=== PATIENT | female | born 1955 | race Caucasian/White ===

== ENCOUNTER 2022-07-15 00:21 | Inpatient (IN) | payer MEDICARE, MEDICAID, SELFPAY ==
[2022-07-15 00:35] VITALS: BP 176/77; PULSE 86; RESP 16; TEMP 36.1; O2SAT 97
[2022-07-15] MEDS: hydrOXYzine HCL 25 MG TABLET PO (01:55)
[2022-07-15] MEDS: LORazepam 0.5 MG TABLET PO ×3 (01:55→23:19)
[2022-07-15] MEDS: Prazosin HCL 5 MG CAPSULE PO (02:04)
--- NOTE | 2022-07-15 02:08 | PC.NURSE ---
pt is a 67 year old female transferred from [facility] dx bipolar disorder/depression/ptsd/adhd. pt states that she was recently undergoing 36 tx of Tms. pt states she stopped the tx after 32 sessions due to night terrors. pt states that she had not experienced any night terrors for 2 years. Unfortunately after starting TMS, pt had a reoccurrence of night terrors. pt states that she called 911 d/t night terrors and subsequent panic attack. 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 she lives alone in an apartment with her cat valente. pt states that over the coarse of her life she has been hospitalized four times for mental health reasons. she states that she has never been suicidal or homicidal. pt is mildly anxious. she is garbed in paper hospital garmets. she states she is hungry. her sensorium is grossly intact. her conversation is deliberate and well articulated. she signed c-v. however, she states in the morning she wants to sign a 3 day. pt is ambulatory with a steady gait. she has no deficits with her ADLS. Skin surfaces intact. resp effort is regular unlabored. htn 176/77. pt will be receiving prazosin 5 mg. pt states regular diet/no difficulty chewing or swallowing/abdomen obese/soft. bm yesterday. no dysuria. pt is a 1 ppd smoker and is requesting NRT.
[2022-07-15 02:35] VITALS: BMI 42.3
[2022-07-15 02:59] VITALS: BP 176/77; PULSE 86; RESP 16; TEMP 36.1; O2SAT 97
[2022-07-15] MEDS: Levothyroxine Sodium 125 MCG TABLET PO (06:38)
[2022-07-15] MEDS: Prazosin HCL 1 MG CAPSULE 2 MG PO (09:03)
[2022-07-15] MEDS: hydrOXYzine HCL 25 MG TABLET 50 MG PO ×3 (09:04→20:48)
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
[2022-07-15] MEDS: Nicotine Polacrilex 2 MG GUM BUCCAL (17:19)
[2022-07-15 18:00] VITALS: BP 120/58; PULSE 74; RESP 16; TEMP 36.3; O2SAT 93
[2022-07-15] MEDS: diazePAM 2 MG TABLET PO (20:43)
[2022-07-15] MEDS: hydrOXYzine HCL 50 MG TABLET 100 MG PO (20:45)
[2022-07-15] MEDS: Prazosin HCL 5 MG CAPSULE 10 MG PO (20:45)
[2022-07-15] MEDS: NIFEdipine ER 30 MG TAB.ER.24 PO (20:45)
[2022-07-15] MEDS: Ziprasidone 80 MG CAPSULE PO (20:46)
[2022-07-16 06:00] VITALS: BP 134/78; PULSE 97; RESP 17; TEMP 36.5; O2SAT 95
[2022-07-16] MEDS: Levothyroxine Sodium 125 MCG TABLET PO (06:31)
[2022-07-16 08:14] LABS: MANUAL DIFF FLAG NO
[2022-07-16] MEDS: Ziprasidone 80 MG CAPSULE PO ×2 (08:26→22:11)
[2022-07-16] MEDS: hydrOXYzine HCL 25 MG TABLET 50 MG PO ×3 (08:26→22:06)
[2022-07-16] MEDS: Venlafaxine HCl ER 150 MG CAP.ER.24H PO (08:26)
[2022-07-16] MEDS: NIFEdipine ER 30 MG TAB.ER.24 PO ×2 (08:26→22:11)
[2022-07-16 09:01] LABS: Basophils Percent Auto 0.5 % (0-2); Eosinophils Absolute Auto 0.2 X10*3/uL (0.0-0.4); Eosinophils Percent Auto 3.1 % (0-4); Hematocrit 47.8 % (37.0-47.0); Hemoglobin 16.3 g/dl (12.0-16.0); Imm Gran Abs Auto 0.02 X10*3/uL (0.00-0.03); Imm Gran Pct Auto 0.3 % (0.0-0.4); Lymphocytes Absolute Auto 2.3 X10*3/uL (1.2-4.9); Lymphocytes Percent Auto 35.2 % (20-40); Mean Corpuscular HGB Conc 34.1 g/dl (31.0-35.0); Mean Corpuscular Hemoglobin 30.6 pg (27.0-33.0); Mean Corpuscular Volume 89.8 fL (80.0-98.0); Mean Platelet Volume 9.8 fL (9.4-12.3); Monocytes Absolute Auto 0.4 X10*3/uL (0.1-1.2); Monocytes Percent Auto 6.2 % (2-11); Neutrophils Absolute Auto 3.5 x10*3/uL (2.0-8.3); Neutrophils Percent Auto 54.7 % (45-73); Platelet Count 242 X10*3/uL (160-400); Red Blood Count 5.32 X10*6/uL (4.20-5.50); Red Cell Distribution Width 12.9 % (11.0-16.0); White Blood Count 6.4 X10*3/uL (4.8-10.8)
[2022-07-16 09:15] LABS: Alanine Aminotransferase 32 U/L (0-31); Albumin Level 4.5 g/dL (3.5-5.0); Alkaline Phosphatase 80 U/L (39-117); Anion Gap 17 (12-20); Aspartate Amino Transferase 23 U/L (5-31); Bilirubin Direct 0.2 mg/dL (0.0-0.5); Bilirubin Total 0.5 mg/dL (0.0-1.0); Blood Urea Nitrogen 11 mg/dL (9-16); Calcium 9.9 mg/dL (8.4-10.2); Carbon Dioxide 22 mmol/L (22-29); Chloride 105 mmol/L (96-108); Cholesterol 223 mg/dL; Estimated Glomerular Filt Rate > 60; Glucose Fasting 128 mg/dL (60-99); HDL Cholesterol 59 mg/dL; LDL Cholesterol Calculated 141 mg/dl; Potassium 4.3 mmol/L (3.3-5.1); Sodium 140 mmol/L (135-145); Total Protein 7.2 g/dL (6.5-8.0); Triglycerides 117 mg/dL
[2022-07-16 09:36] LABS: Thyroid Stimulating Hormone 7.38 uIU/mL (0.32-4.0)
[2022-07-16 09:47] LABS: Vitamin B12 536 pg/mL (200-900)
[2022-07-16 09:53] LABS: Estimated Average Glucose 111 mg/dL; Hemoglobin A1c % 5.5 %
[2022-07-16] MEDS: LORazepam 0.5 MG TABLET PO (10:05)
--- NOTE | 2022-07-16 11:17 | HO.PSYCHPN ---
Subjective Subjective Date of Service: 07/16/22 Reason For Visit: Bipolar, anxiety Subjective Notes: Conditional Voluntary and 3 Day Interim History: the nursing staff reported the patient was compliant with treatment. She reported that she is allergic but amoxapine and she usually uses concert. We discussed options and she agreed to use in the meantime a low dose of Ritalin. She stated on interview, that her night terrors were resolved with Valium 2 mg. She complained of waking up very early this morning. Mental Status Exam Mental Status Exam Patient Appearance: Well Grooomed Patient Orientation: Person and Situation Level of Consciousness: Awake Patient Behavior: Cooperative Mood Description: Calm Affect Description: Constricted Patient Cognition Impaired: No Ability to Follow Directions: Good Speech Pattern: Clear Hallucinations: None Delusions: Not Present Thought Process: Linear Thought Content: positive for Intact Judgement: Fair Diagnostics Vital Signs (24Hr): Vital Signs - 24 hr 07/15/22 18:00 07/16/22 06:00 Temperature 97.4 F 97.7 F Pulse Rate 74 97 Respiratory Rate 16 17 Blood Pressure 120/58 L 134/78 Pulse Oximetry 93 95 Oxygen Delivery Method Room Air Room Air BMI result Body Mass Index 42.3 Labs Results: 07/16/22 07:56 07/16/22 07:56 Labs: Laboratory Results - last 48 hr 07/16/22 07/16/22 07/16/22 07:56 07:56 07:56 WBC 6.4 RBC 5.32 Hgb 16.3 H Hct 47.8 H MCV 89.8 MCH 30.6 MCHC 34.1 RDW 12.9 Plt Count 242 MPV 9.8 Immature Gran % (Auto) 0.3 Neut % (Auto) 54.7 Lymph % (Auto) 35.2 [place] % (Auto) 6.2 Eos % (Auto) 3.1 Baso % (Auto) 0.5 Lymph # (Auto) 2.3 [place] # (Auto) 0.4 Eos # (Auto) 0.2 Baso # (Auto) 0.0 Abs Immat Gran (auto) 0.02 Absolute Neuts (auto) 3.5 Absolute Nucleated RBC 0.000 Nucleated RBC % (auto) 0.0 Sodium 140 Potassium 4.3 Chloride 105 Carbon Dioxide 22 Anion Gap 17 BUN 11 Creatinine 0.92 Estim Creat Clear Calc 59.0 Estimated GFR > 60 Fasting Glucose 128 H Estimat Average Glucose 111 Hemoglobin A1c % 5.5 Calcium 9.9 Total Bilirubin 0.5 Direct Bilirubin 0.2 AST 23 ALT 32 H Alkaline Phosphatase 80 Total Protein 7.2 Albumin 4.5 Triglycerides 117 Cholesterol 223 LDL Cholesterol, Calc 141 HDL Cholesterol 59 Vitamin B12 Folate TSH 7.38 H 07/16/22 07:56 WBC RBC Hgb Hct MCV MCH MCHC RDW Plt Count MPV Immature Gran % (Auto) Neut % (Auto) Lymph % (Auto) [place] % (Auto) Eos % (Auto) Baso % (Auto) Lymph # (Auto) [place] # (Auto) Eos # (Auto) Baso # (Auto) Abs Immat Gran (auto) Absolute Neuts (auto) Absolute Nucleated RBC Nucleated RBC % (auto) Sodium Potassium Chloride Carbon Dioxide Anion Gap BUN Creatinine Estim Creat Clear Calc Estimated GFR Fasting Glucose Estimat Average Glucose Hemoglobin A1c % Calcium Total Bilirubin Direct Bilirubin AST ALT Alkaline Phosphatase Total Protein Albumin Triglycerides Cholesterol LDL Cholesterol, Calc HDL Cholesterol Vitamin B12 536 Folate 13.0 TSH Medications Medications Current Medications Acetaminophen (Acetaminophen 325 Mg Tablet) 650 mg PO Q6H PRN PRN Reason: Headache/Pain Mild Scale (1-3) Al Hydroxide/Mg Hydroxide (Magnesium Hydrox/Alum Hydrox 30 Ml Oral.Susp) 30 ml PO Q6H PRN PRN Reason: Heartburn/Nausea Clonidine HCl (Clonidine Hcl 0.2 Mg Tablet) 0.2 mg PO BID PRN PRN Reason: Anxiety Diazepam (Diazepam 2 Mg Tablet) 2 mg PO BEDTIME [facility] Last Admin: 07/15/22 20:43 Dose: 2 mg Gabapentin (Gabapentin 300 Mg Capsule) 300 mg PO TID [facility] Last Admin: 07/16/22 08:27 Dose: Not Given Hydroxyzine HCl (Hydroxyzine Hcl 25 Mg Tablet) 25 mg PO Q6H PRN PRN Reason: Anxiety Last Admin: 07/15/22 01:55 Dose: 25 mg Hydroxyzine HCl (Hydroxyzine Hcl 25 Mg Tablet) 50 mg PO TID [facility] Last Admin: 07/16/22 08:26 Dose: 50 mg Hydroxyzine HCl (Hydroxyzine Hcl 50 Mg Tablet) 100 mg PO BEDTIME [facility] Last Admin: 07/15/22 20:45 Dose: 100 mg Levothyroxine Sodium (Levothyroxine Sodium 125 Mcg Tablet) 125 mcg PO DAILY@0600 [facility] Last Admin: 07/16/22 06:31 Dose: 125 mcg Lorazepam (Lorazepam 0.5 Mg Tablet) 0.5 mg PO Q8H PRN PRN Reason: Anxiety Last Admin: 07/16/22 10:05 Dose: 0.5 mg Magnesium Hydroxide (Milk Of Magnesia 30 Ml Oral.Susp) 30 ml PO DAILY PRN PRN Reason: Constipation Nicotine (Nicotine 21 Mg Patch.Td24) 21 mg TRANSDERMA DAILY [facility] Nicotine Polacrilex (Nicotine Polacrilex 2 Mg Gum) 2 mg BUCCAL Q2H PRN PRN Reason: Nicotine Cravings Last Admin: 07/15/22 17:19 Dose: 2 mg Nifedipine (Nifedipine Er 30 Mg Tab.Er.24) 30 mg PO BID [facility] Last Admin: 07/16/22 08:26 Dose: 30 mg Non-Formulary Medication (Atomoxetine) 18 mg PO DAILY [facility] Prazosin HCl (Prazosin Hcl 5 Mg Capsule) 10 mg PO BEDTIME [facility] Last Admin: 07/15/22 20:45 Dose: 10 mg Trazodone HCl (Trazodone Hcl 50 Mg Tablet) 50 mg PO BEDTIME PRN PRN Reason: Insomnia Venlafaxine HCl (Venlafaxine Hcl Er 150 Mg Cap.Er.24h) 150 mg PO DAILY [facility] Last Admin: 07/16/22 08:26 Dose: 150 mg Ziprasidone (Ziprasidone 80 Mg Capsule) 80 mg PO BID [facility] Last Admin: 07/16/22 08:26 Dose: 80 mg Allergies Allergies Allergy/AdvReac Type Severity Reaction Status Date / Time No Known Allergies Allergy Verified 07/15/22 01:18 Assessment & Plan Assessment & Plan (1) Bipolar disorder: Status: Acute Code(s): F31.9 - Bipolar disorder, unspecified (2) Sleep disorder: Status: Acute Code(s): G47.9 - Sleep disorder, unspecified Plan the patient is an elderly female with a long history of bipolar disorder, highly functional at baseline, referred to this facility for exacerbation of PTSD symptoms and night terrors in the context of treatment for depression. At this moment, the patient denies safety concerns but she reports that she is still very anxious, unable to function. Plan 1. Gather collateral information. 2. Continue with Geodon and other mood stabilizers. 3. Continue medical workout . 4. Continue Valium 2 mg p.o. q.h.s. to target night terrors. 5. Start Ritalin 5 mg p.o. b.i.d. I spent __20____ minutes with the patient and/or on the patient floor today, greater than?50% of which was spent counseling/coordinating care. Reason for contiued inpatient stay Substantial Risk for: inability to function, rapid decompensation and med/psych decompensation
--- NOTE | 2022-07-16 14:14 | P.CONHOSP_ITS ---
History of Present Illness Data of Consult Service Date: 07/16/22 Requesting physician: Yaw Talbot Primary Care Provider: Unknown Physician HPI Reason for consult: medical H&P 67 year old female with history of hypertension, hypothyroidism, parotitis, ADHD, bipolar disorder admitted to geriatric psychiatry for hallucinations, SI, and night terrors with consult placed for medical H&P. She was transferred from [facility]. Denies etoh or illicit drug use. Does smoke 1ppd cigarettes. She has no complaints at this time but is requenting a nicotine patch. Review of Systems Review of Systems: General: No fevers, malaise, unintentional weight loss HEENT: No blurred vision or diplopia Neck: No swelling or pain Cardiovascular: No chest pain, palpitations, or leg edema Respiratory: No shortness of breath, wheezing, cough GI: No abdominal pain, nausea, vomiting, diarrhea, constipation, melena, hematochezia Gu: No dysuria, hematuria, increased urinary frequency Neuro: No headaches, weakness, paresthesias Skin: No rashes or lesions PMFSH Medical History ADHD Bipolar disorder HLD (hyperlipidemia) HTN (hypertension) Hypothyroidism Night terror Parotitis Family History Mother No problems noted. Father No problems noted. Social History Household Members: None Housing: Apartment Do you presently have visiting nurse or other home services: No Patient Tobacco Use Status: Current everyday Tobacco user Tobacco use type: Cigarette Smoked in Last 30 Days: Yes Patient Interested in Nicotine Replacement: Yes Patient Given Instructions on How to Stop Smoking: No (consult initiated) Date Education Initiated: 07/15/22 Second Hand Smoke Exposure: No Use of substances other than those prescribed or required for medical reasons: No Currently Displaying Signs/Symptoms of Drug Intoxication Withdrawal: No Any prior treatment program specific to substance use: No Have you been hit, kicked, punched, or otherwise hurt by someone within the past year? If so, by whom?: No Do you feel safe in your current relationship?: No Current Relationship Is there a partner from a previous relationship who is making you feel unsafe now?: No Are you made to feel afraid or neglected: No Advance Directives: No Do you have thoughts of harming others: None Do you have a plan to hurt others: No Plan Recently lost weight without trying: No Eating poorly because of decreased appetite: Yes Patient : No : No Poor oral hygiene: No service: No Sexual orientation: Straight/Heterosexual Meds Allergies Allergy/AdvReac Type Severity Reaction Status Date / Time No Known Allergies Allergy Verified 07/15/22 01:18 Active Medications: Current Medications Acetaminophen (Acetaminophen 325 Mg Tablet) 650 mg PO Q6H PRN PRN Reason: Headache/Pain Mild Scale (1-3) Al Hydroxide/Mg Hydroxide (Magnesium Hydrox/Alum Hydrox 30 Ml Oral.Susp) 30 ml PO Q6H PRN PRN Reason: Heartburn/Nausea Clonidine HCl (Clonidine Hcl 0.2 Mg Tablet) 0.2 mg PO BID PRN PRN Reason: Anxiety Diazepam (Diazepam 2 Mg Tablet) 2 mg PO BEDTIME [facility] Last Admin: 07/15/22 20:43 Dose: 2 mg Gabapentin (Gabapentin 300 Mg Capsule) 300 mg PO TID [facility] Last Admin: 07/16/22 08:27 Dose: Not Given Hydroxyzine HCl (Hydroxyzine Hcl 25 Mg Tablet) 25 mg PO Q6H PRN PRN Reason: Anxiety Last Admin: 07/15/22 01:55 Dose: 25 mg Hydroxyzine HCl (Hydroxyzine Hcl 25 Mg Tablet) 50 mg PO TID [facility] Last Admin: 07/16/22 08:26 Dose: 50 mg Hydroxyzine HCl (Hydroxyzine Hcl 50 Mg Tablet) 100 mg PO BEDTIME [facility] Last Admin: 07/15/22 20:45 Dose: 100 mg Levothyroxine Sodium (Levothyroxine Sodium 125 Mcg Tablet) 125 mcg PO DAILY@0600 [facility] Last Admin: 07/16/22 06:31 Dose: 125 mcg Lorazepam (Lorazepam 0.5 Mg Tablet) 0.5 mg PO Q8H PRN PRN Reason: Anxiety Last Admin: 07/16/22 10:05 Dose: 0.5 mg Magnesium Hydroxide (Milk Of Magnesia 30 Ml Oral.Susp) 30 ml PO DAILY PRN PRN Reason: Constipation Methylphenidate HCl (Methylphenidate Hcl 5 Mg Tablet) 5 mg PO BID@0630,1630 [facility] Nicotine (Nicotine 21 Mg Patch.Td24) 21 mg TRANSDERMA DAILY [facility] Nicotine Polacrilex (Nicotine Polacrilex 2 Mg Gum) 2 mg BUCCAL Q2H PRN PRN Reason: Nicotine Cravings Last Admin: 07/15/22 17:19 Dose: 2 mg Nifedipine (Nifedipine Er 30 Mg Tab.Er.24) 30 mg PO BID [facility] Last Admin: 07/16/22 08:26 Dose: 30 mg Prazosin HCl (Prazosin Hcl 5 Mg Capsule) 10 mg PO BEDTIME [facility] Last Admin: 07/15/22 20:45 Dose: 10 mg Trazodone HCl (Trazodone Hcl 50 Mg Tablet) 50 mg PO BEDTIME PRN PRN Reason: Insomnia Venlafaxine HCl (Venlafaxine Hcl Er 150 Mg Cap.Er.24h) 150 mg PO DAILY [facility] Last Admin: 07/16/22 08:26 Dose: 150 mg Ziprasidone (Ziprasidone 80 Mg Capsule) 80 mg PO BID [facility] Last Admin: 07/16/22 08:26 Dose: 80 mg Home Medications Medication Instructions Recorded Confirmed Last Taken Type Geodon 80 mg PO BID 07/15/22 07/15/22 Unknown History atomoxetine 18 mg PO DAILY 07/15/22 07/15/22 Unknown History clonidine 0.2 mg PO BID PRN Anxiety 07/15/22 07/15/22 Unknown History gabapentin 300 mg PO TID 07/15/22 07/15/22 Unknown History hydroxyzine pamoate 100 mg PO BEDTIME 07/15/22 07/15/22 Unknown History levothyroxine 125 mcg PO DAILY 07/15/22 07/15/22 Unknown History nifedipine 30 mg PO BID 07/15/22 07/15/22 Unknown History prazosin 10 mg PO BEDTIME 07/15/22 07/15/22 Unknown History venlafaxine 150 mg PO DAILY 07/15/22 07/15/22 Unknown History methylphenidate HCl 18 mg 18 mg PO DAILY 07/16/22 07/16/22 Unknown History tablet,extended release 24 hr ([facility]cert[facility]) Physical Exam Vital Signs and Narrative: Vital Signs: Last Vital Signs Temp 97.7 F 07/16/22 06:00 Pulse 97 07/16/22 06:00 Resp 17 07/16/22 06:00 BP 134/78 07/16/22 06:00 Pulse Ox 95 07/16/22 06:00 O2 Del Method 07/16/22 06:00 BMI result Body Mass Index 42.3 Constitutional - Awake and Alert, No apparent distress Eyes - PERRLA, EOMI Neck: supple, no adenopathy, thyroid symmetric and without palpable nodules Cardiovascular - S1S2, RRR, No edema Respiratory - Normal lung expansion, Normal respiratory effort, No respiratory distress, CTA bilaterally Gastrointestinal - NT / ND; +BS; No rebound or guarding Extremities - no calf tenderness bilaterally, no swelling Musculoskeletal - Normal inspection, normal ROM Skin - Warm/Dry Neurological - Alert & oriented x3, CN II-XII in tact, 5/5 strength BUE and BLE Psychological - Appropriate affect Results Labs CBC and Chem 7: 07/16/22 07:56 07/16/22 07:56 Labs: Laboratory Results - last 24 hr 07/16/22 07/16/22 07/16/22 07:56 07:56 07:56 MCV 89.8 MCH 30.6 MCHC 34.1 RDW 12.9 Plt Count 242 MPV 9.8 Immature Gran % (Auto) 0.3 Neut % (Auto) 54.7 Lymph % (Auto) 35.2 [place] % (Auto) 6.2 Eos % (Auto) 3.1 Baso % (Auto) 0.5 Lymph # (Auto) 2.3 [place] # (Auto) 0.4 Eos # (Auto) 0.2 Baso # (Auto) 0.0 Abs Immat Gran (auto) 0.02 Absolute Neuts (auto) 3.5 Absolute Nucleated RBC 0.000 Nucleated RBC % (auto) 0.0 Anion Gap 17 Estim Creat Clear Calc 59.0 Estimated GFR > 60 Fasting Glucose 128 H Estimat Average Glucose 111 Hemoglobin A1c % 5.5 Calcium 9.9 Total Bilirubin 0.5 Direct Bilirubin 0.2 AST 23 ALT 32 H Alkaline Phosphatase 80 Total Protein 7.2 Albumin 4.5 Triglycerides 117 Cholesterol 223 LDL Cholesterol, Calc 141 HDL Cholesterol 59 Vitamin B12 Folate TSH 7.38 H 07/16/22 07:56 MCV MCH MCHC RDW Plt Count MPV Immature Gran % (Auto) Neut % (Auto) Lymph % (Auto) [place] % (Auto) Eos % (Auto) Baso % (Auto) Lymph # (Auto) [place] # (Auto) Eos # (Auto) Baso # (Auto) Abs Immat Gran (auto) Absolute Neuts (auto) Absolute Nucleated RBC Nucleated RBC % (auto) Anion Gap Estim Creat Clear Calc Estimated GFR Fasting Glucose Estimat Average Glucose Hemoglobin A1c % Calcium Total Bilirubin Direct Bilirubin AST ALT Alkaline Phosphatase Total Protein Albumin Triglycerides Cholesterol LDL Cholesterol, Calc HDL Cholesterol Vitamin B12 536 Folate 13.0 TSH Assessment and Plan (1) Sleep disorder: Status: Acute (2) Bipolar disorder: Status: Acute Plan 67 year old female with history of hypertension, hypothyroidism, parotitis, ADHD, bipolar disorder admitted to geriatric psychiatry for hallucinations, SI, and night terrors with consult placed for medical H&P.Labs reviewed from [place] [facility] and [facility] are unremarkable including CBC and BMP. EKG shows NSR without st/t wave abnormality. No prolonged qtc #Bipolar disorder/night terrors -Plan per psychiatry #HTN-controlled -not on meds -monitor bp -consider amlodipine 5mg if hypertensive #Hypothyroidism -TSH elevated. Recommend repeating TSH with free T4 in several days -Continue levothyroxine on empty stomach. No other meds or food for 1hr #HLD -continue statin #Parotitis appears to have resolved no parotid gland swelling or tenderness #Nicotine dependence -1ppd cigarette smoker -Patches for NRT -Cessation counseling offered Thank you for allowing me to participate in this consult. Signing off at this time. Please do not hesitate to call for further questions.
[2022-07-16] MEDS: Methylphenidate HCl 5 MG TABLET PO (15:12)
[2022-07-16 18:00] VITALS: BP 151/70; PULSE 72; RESP 18; TEMP 36.4; O2SAT 95
[2022-07-16] MEDS: diazePAM 2 MG TABLET PO (22:05)
[2022-07-16] MEDS: Prazosin HCL 5 MG CAPSULE 10 MG PO (22:11)
[2022-07-16] MEDS: hydrOXYzine HCL 50 MG TABLET 100 MG PO (22:11)
[2022-07-17] MEDS: Levothyroxine Sodium 125 MCG TABLET PO (05:55)
[2022-07-17] MEDS: Methylphenidate HCl 5 MG TABLET PO ×2 (06:11→16:51)
[2022-07-17 07:45] VITALS: BP 151/71; PULSE 78; RESP 15; TEMP 36.6; O2SAT 97
[2022-07-17] MEDS: Nicotine 21 MG PATCH.TD24 TRANSDERMA (09:30)
[2022-07-17] MEDS: Ziprasidone 80 MG CAPSULE PO ×2 (09:31→20:20)
[2022-07-17] MEDS: NIFEdipine ER 30 MG TAB.ER.24 PO ×2 (09:31→20:20)
[2022-07-17] MEDS: Venlafaxine HCl ER 150 MG CAP.ER.24H PO (09:31)
[2022-07-17] MEDS: hydrOXYzine HCL 25 MG TABLET 50 MG PO ×3 (09:31→20:20)
[2022-07-17] MEDS: LORazepam 0.5 MG TABLET PO (09:43)
--- NOTE | 2022-07-17 11:24 | HO.PSYCHPN ---
Subjective Subjective Date of Service: 07/17/22 Reason For Visit: Bipolar, anxiety Subjective Notes: Conditional Voluntary and 3 Day Interim History: the nursing staff reported the patient slept well the night terrors. She refused her gabapentin t.i.d.. The occupational therapist reported that she scored 26/30 on the [place] done 5.6 on the Eladio test. She was engageable and she was trying to learn new coping skills. The social media intern reported that they wanted to contact her therapist and they have trying to communicate but the left messages. Today she could talk with her provider and apparently she had a past history of abuse of benzodiazepines and they will not continue that after discharge. On interview the patient denies new symptoms she feels comfortable with the current treatment. She denies active suicidal ideation but she is still delusional. Mental Status Exam Mental Status Exam Patient Appearance: Well Grooomed Patient Orientation: Person and Situation Level of Consciousness: Awake Patient Behavior: Cooperative Mood Description: Calm Affect Description: Constricted Patient Cognition Impaired: No Ability to Follow Directions: Good Speech Pattern: Clear Hallucinations: None Delusions: Not Present Thought Process: Goal Oriented and Linear Thought Content: positive for Circumstantial Judgement: Fair Diagnostics Vital Signs (24Hr): Vital Signs - 24 hr 07/16/22 18:00 Temperature 97.5 F Pulse Rate 72 Respiratory Rate 18 Blood Pressure 151/70 H Pulse Oximetry 95 Oxygen Delivery Method Room Air BMI result Body Mass Index 42.3 Labs Results: 07/16/22 07:56 07/16/22 07:56 Labs: Laboratory Results - last 48 hr 07/16/22 07/16/22 07/16/22 07:56 07:56 07:56 WBC 6.4 RBC 5.32 Hgb 16.3 H Hct 47.8 H MCV 89.8 MCH 30.6 MCHC 34.1 RDW 12.9 Plt Count 242 MPV 9.8 Immature Gran % (Auto) 0.3 Neut % (Auto) 54.7 Lymph % (Auto) 35.2 [place] % (Auto) 6.2 Eos % (Auto) 3.1 Baso % (Auto) 0.5 Lymph # (Auto) 2.3 [place] # (Auto) 0.4 Eos # (Auto) 0.2 Baso # (Auto) 0.0 Abs Immat Gran (auto) 0.02 Absolute Neuts (auto) 3.5 Absolute Nucleated RBC 0.000 Nucleated RBC % (auto) 0.0 Sodium 140 Potassium 4.3 Chloride 105 Carbon Dioxide 22 Anion Gap 17 BUN 11 Creatinine 0.92 Estim Creat Clear Calc 59.0 Estimated GFR > 60 Fasting Glucose 128 H Estimat Average Glucose 111 Hemoglobin A1c % 5.5 Calcium 9.9 Total Bilirubin 0.5 Direct Bilirubin 0.2 AST 23 ALT 32 H Alkaline Phosphatase 80 Total Protein 7.2 Albumin 4.5 Triglycerides 117 Cholesterol 223 LDL Cholesterol, Calc 141 HDL Cholesterol 59 Vitamin B12 Folate TSH 7.38 H 07/16/22 07:56 WBC RBC Hgb Hct MCV MCH MCHC RDW Plt Count MPV Immature Gran % (Auto) Neut % (Auto) Lymph % (Auto) Thur[place] % (Auto) Eos % (Auto) Baso % (Auto) Lymph # (Auto) Thur[place] # (Auto) Eos # (Auto) Baso # (Auto) Abs Immat Gran (auto) Absolute Neuts (auto) Absolute Nucleated RBC Nucleated RBC % (auto) Sodium Potassium Chloride Carbon Dioxide Anion Gap BUN Creatinine Estim Creat Clear Calc Estimated GFR Fasting Glucose Estimat Average Glucose Hemoglobin A1c % Calcium Total Bilirubin Direct Bilirubin AST ALT Alkaline Phosphatase Total Protein Albumin Triglycerides Cholesterol LDL Cholesterol, Calc HDL Cholesterol Vitamin B12 536 Folate 13.0 TSH Medications Medications Current Medications Acetaminophen (Acetaminophen 325 Mg Tablet) 650 mg PO Q6H PRN PRN Reason: Headache/Pain Mild Scale (1-3) Al Hydroxide/Mg Hydroxide (Magnesium Hydrox/Alum Hydrox 30 Ml Oral.Susp) 30 ml PO Q6H PRN PRN Reason: Heartburn/Nausea Clonidine HCl (Clonidine Hcl 0.2 Mg Tablet) 0.2 mg PO BID PRN PRN Reason: Anxiety Diazepam (Diazepam 2 Mg Tablet) 2 mg PO BEDTIME COUNT INCLUDES THE [facility] Last Admin: 07/16/22 22:05 Dose: 2 mg Gabapentin (Gabapentin 300 Mg Capsule) 300 mg PO TID COUNT INCLUDES THE [facility] Last Admin: 07/17/22 09:34 Dose: Not Given Hydroxyzine HCl (Hydroxyzine Hcl 25 Mg Tablet) 25 mg PO Q6H PRN PRN Reason: Anxiety Last Admin: 07/15/22 01:55 Dose: 25 mg Hydroxyzine HCl (Hydroxyzine Hcl 25 Mg Tablet) 50 mg PO TID COUNT INCLUDES THE [facility] Last Admin: 07/17/22 09:31 Dose: 50 mg Hydroxyzine HCl (Hydroxyzine Hcl 50 Mg Tablet) 100 mg PO BEDTIME COUNT INCLUDES THE [facility] Last Admin: 07/16/22 22:11 Dose: 100 mg Levothyroxine Sodium (Levothyroxine Sodium 125 Mcg Tablet) 125 mcg PO DAILY@0600 COUNT INCLUDES THE [facility] Last Admin: 07/17/22 05:55 Dose: 125 mcg Lorazepam (Lorazepam 0.5 Mg Tablet) 0.5 mg PO Q8H PRN PRN Reason: Anxiety Last Admin: 07/17/22 09:43 Dose: 0.5 mg Magnesium Hydroxide (Milk Of Magnesia 30 Ml Oral.Susp) 30 ml PO DAILY PRN PRN Reason: Constipation Methylphenidate HCl (Methylphenidate Hcl 5 Mg Tablet) 5 mg PO BID@0630,1630 COUNT INCLUDES THE [facility] Last Admin: 07/17/22 06:11 Dose: 5 mg Nicotine (Nicotine 21 Mg Patch.Td24) 21 mg TRANSDERMA DAILY COUNT INCLUDES THE [facility] Last Admin: 07/17/22 09:30 Dose: 21 mg Nicotine Polacrilex (Nicotine Polacrilex 2 Mg Gum) 2 mg BUCCAL Q2H PRN PRN Reason: Nicotine Cravings Last Admin: 07/15/22 17:19 Dose: 2 mg Nifedipine (Nifedipine Er 30 Mg Tab.Er.24) 30 mg PO BID COUNT INCLUDES THE [facility] Last Admin: 07/17/22 09:31 Dose: 30 mg Prazosin HCl (Prazosin Hcl 5 Mg Capsule) 10 mg PO BEDTIME COUNT INCLUDES [facility] Last Admin: 07/16/22 22:11 Dose: 10 mg Trazodone HCl (Trazodone Hcl 50 Mg Tablet) 50 mg PO BEDTIME PRN PRN Reason: Insomnia Venlafaxine HCl (Venlafaxine Hcl Er 150 Mg Cap.Er.24h) 150 mg PO DAILY COUNT INCLUDES THE [facility] Last Admin: 07/17/22 09:31 Dose: 150 mg Ziprasidone (Ziprasidone 80 Mg Capsule) 80 mg PO BID COUNT INCLUDES THE [facility] Last Admin: 07/17/22 09:31 Dose: 80 mg Allergies Allergies Allergy/AdvReac Type Severity Reaction Status Date / Time No Known Allergies Allergy Verified 07/15/22 01:18 Assessment & Plan Assessment & Plan (1) Sleep disorder: Status: Acute Code(s): G47.9 - Sleep disorder, unspecified (2) Bipolar disorder: Status: Acute Code(s): F31.9 - Bipolar disorder, unspecified Plan 67 year old female with history of hypertension, hypothyroidism, parotitis, ADHD, bipolar disorder admitted to geriatric psychiatry for hallucinations, SI, and night terrors with consult placed for medical H&P.Labs reviewed from [place] [facility] and [facility] are unremarkable including CBC and BMP. EKG shows NSR without st/t wave abnormality. No prolonged qtc #Bipolar disorder/night terrors -Plan per psychiatry #HTN-controlled -not on meds -monitor bp -consider amlodipine 5mg if hypertensive #Hypothyroidism -TSH elevated. Recommend repeating TSH with free T4 in several days -Continue levothyroxine on empty stomach. No other meds or food for 1hr #HLD -continue statin #Parotitis appears to have resolved no parotid gland swelling or tenderness #Nicotine dependence -1ppd cigarette smoker -Patches for NRT -Cessation counseling offered Continue with current psychiatric treatment Bloodwork for Wednesday I spent ___20___ minutes with the patient and/or on the patient floor today, greater than?50% of which was spent counseling/coordinating care. Reason for contiued inpatient stay Substantial Risk for: inability to function, rapid decompensation and med/psych decompensation
[2022-07-17 18:00] VITALS: BP 132/63; PULSE 79; RESP 18; TEMP 36.4; O2SAT 96
[2022-07-17] MEDS: diazePAM 2 MG TABLET PO (20:19)
[2022-07-17] MEDS: Gabapentin 300 MG CAPSULE PO (20:20)
[2022-07-17] MEDS: Prazosin HCL 5 MG CAPSULE 10 MG PO (20:20)
[2022-07-17] MEDS: hydrOXYzine HCL 50 MG TABLET 100 MG PO (20:21)
[2022-07-18 06:00] VITALS: BP 134/64; PULSE 111; RESP 20; TEMP 36.4; O2SAT 94
[2022-07-18] MEDS: Methylphenidate HCl 5 MG TABLET PO ×2 (06:16→15:23)
[2022-07-18] MEDS: Levothyroxine Sodium 125 MCG TABLET PO (06:16)
[2022-07-18] MEDS: Venlafaxine HCl ER 150 MG CAP.ER.24H PO (08:20)
[2022-07-18] MEDS: Gabapentin 300 MG CAPSULE PO ×3 (08:20→20:10)
[2022-07-18] MEDS: NIFEdipine ER 30 MG TAB.ER.24 PO ×2 (08:20→20:10)
[2022-07-18] MEDS: Ziprasidone 80 MG CAPSULE PO ×2 (08:20→20:10)
[2022-07-18] MEDS: hydrOXYzine HCL 25 MG TABLET 50 MG PO ×3 (08:20→20:10)
[2022-07-18] MEDS: Nicotine 21 MG PATCH.TD24 TRANSDERMA (08:21)
[2022-07-18] MEDS: LORazepam 0.5 MG TABLET PO ×2 (09:05→17:42)
[2022-07-18 09:25] VITALS: BP 135/60; PULSE 79; RESP 16; TEMP 36.5; O2SAT 95
[2022-07-18 18:00] VITALS: BP 164/78; PULSE 82; RESP 22; TEMP 36.2; O2SAT 95
[2022-07-18] MEDS: diazePAM 2 MG TABLET PO (20:10)
[2022-07-18] MEDS: hydrOXYzine HCL 50 MG TABLET 100 MG PO (20:10)
[2022-07-18] MEDS: Prazosin HCL 5 MG CAPSULE 10 MG PO (20:10)
--- NOTE | 2022-07-18 22:34 | P.PNPSI_ITS ---
Subjective Subjective Date of Service: 07/18/22 Reason For Visit: Bipolar, anxiety Subjective Notes: Mota Warning Interim History: Met with pt's team, no behavioral concerns, she is leaving on Wednesday. I spoke with pt. Says her nightmares better. Mood is pretty good. No questions or concerns. Sleep and appetite are good. Denies SI/SIB. Feels safe. Medication Compliance: Yes Side effects from medications: No Attending Groups: Yes Review of Systems Acute medical concerns: No Medical Review of Systems: unchanged Mental Status Exam Mental Status Exam Narrative: Patient Appearance: Well Grooomed Patient Orientation: Person and Situation Level of Consciousness: Awake Patient Behavior: Cooperative Mood Description: Calm Affect Description: Constricted Patient Cognition Impaired: No Ability to Follow Directions: Good Speech Pattern: Clear Hallucinations: None Delusions: Not Present Thought Process: Goal Oriented and Linear Thought Content: positive for Circumstantial Judgement: Fair Diagnostics Vital Signs (24Hr): Vital Signs - 24 hr 07/18/22 06:00 07/18/22 09:25 07/18/22 18:00 Temperature 97.5 F 97.7 F 97.1 F Pulse Rate 111 H 79 82 Respiratory Rate 20 16 22 H Blood Pressure 134/64 135/60 164/78 H Pulse Oximetry 94 95 95 Oxygen Delivery Method Room Air Room Air Room Air BMI result Body Mass Index 42.3 Labs Results: 07/16/22 07:56 07/16/22 07:56 Medications Medications Current Medications Acetaminophen (Acetaminophen 325 Mg Tablet) 650 mg PO Q6H PRN PRN Reason: Headache/Pain Mild Scale (1-3) Al Hydroxide/Mg Hydroxide (Magnesium Hydrox/Alum Hydrox 30 Ml Oral.Susp) 30 ml PO Q6H PRN PRN Reason: Heartburn/Nausea Clonidine HCl (Clonidine Hcl 0.2 Mg Tablet) 0.2 mg PO BID PRN PRN Reason: Anxiety Diazepam (Diazepam 2 Mg Tablet) 2 mg PO BEDTIME [facility] Last Admin: 07/18/22 20:10 Dose: 2 mg Gabapentin (Gabapentin 300 Mg Capsule) 300 mg PO TID [facility] Last Admin: 07/18/22 20:10 Dose: 300 mg Hydroxyzine HCl (Hydroxyzine Hcl 25 Mg Tablet) 25 mg PO Q6H PRN PRN Reason: Anxiety Last Admin: 07/15/22 01:55 Dose: 25 mg Hydroxyzine HCl (Hydroxyzine Hcl 25 Mg Tablet) 50 mg PO TID [facility] Last Admin: 07/18/22 20:10 Dose: 50 mg Hydroxyzine HCl (Hydroxyzine Hcl 50 Mg Tablet) 100 mg PO BEDTIME [facility] Last Admin: 07/18/22 20:10 Dose: 100 mg Levothyroxine Sodium (Levothyroxine Sodium 125 Mcg Tablet) 125 mcg PO DAILY@0600 [facility] Last Admin: 07/18/22 06:16 Dose: 125 mcg Lorazepam (Lorazepam 0.5 Mg Tablet) 0.5 mg PO Q8H PRN PRN Reason: Anxiety Last Admin: 07/18/22 17:42 Dose: 0.5 mg Magnesium Hydroxide (Milk Of Magnesia 30 Ml Oral.Susp) 30 ml PO DAILY PRN PRN Reason: Constipation Methylphenidate HCl (Methylphenidate Hcl 5 Mg Tablet) 5 mg PO BID@0630,1630 [facility] Last Admin: 07/18/22 15:23 Dose: 5 mg Nicotine (Nicotine 21 Mg Patch.Td24) 21 mg TRANSDERMA DAILY [facility] Last Admin: 07/18/22 08:21 Dose: 21 mg Nicotine Polacrilex (Nicotine Polacrilex 2 Mg Gum) 2 mg BUCCAL Q2H PRN PRN Reason: Nicotine Cravings Last Admin: 07/15/22 17:19 Dose: 2 mg Nifedipine (Nifedipine Er 30 Mg Tab.Er.24) 30 mg PO BID [facility] Last Admin: 07/18/22 20:10 Dose: 30 mg Prazosin HCl (Prazosin Hcl 5 Mg Capsule) 10 mg PO BEDTIME [facility] Last Admin: 07/18/22 20:10 Dose: 10 mg Trazodone HCl (Trazodone Hcl 50 Mg Tablet) 50 mg PO BEDTIME PRN PRN Reason: Insomnia Venlafaxine HCl (Venlafaxine Hcl Er 150 Mg Cap.Er.24h) 150 mg PO DAILY [facility] Last Admin: 07/18/22 08:20 Dose: 150 mg Ziprasidone (Ziprasidone 80 Mg Capsule) 80 mg PO BID [facility] Last Admin: 07/18/22 20:10 Dose: 80 mg Allergies Allergies Allergy/AdvReac Type Severity Reaction Status Date / Time No Known Allergies Allergy Verified 07/15/22 01:18 Assessment & Plan Assessment & Plan (1) Sleep disorder: Status: Acute Code(s): G47.9 - Sleep disorder, unspecified (2) Bipolar disorder: Status: Acute Code(s): F31.9 - Bipolar disorder, unspecified Plan 67 year old female with history of hypertension, hypothyroidism, parotitis, ADHD, bipolar disorder admitted to geriatric psychiatry for hallucinations, SI, and night terrors with consult placed for medical H&P.Labs reviewed from [place] [facility] and [facility] are unremarkable including CBC and BMP. EKG shows NSR without st/t wave abnormality. No prolonged qtc #Bipolar disorder/night terrors -Plan per psychiatry #HTN-controlled -not on meds -monitor bp -consider amlodipine 5mg if hypertensive #Hypothyroidism -TSH elevated. Recommend repeating TSH with free T4 in several days -Continue levothyroxine on empty stomach. No other meds or food for 1hr #HLD -continue statin #Parotitis appears to have resolved no parotid gland swelling or tenderness #Nicotine dependence -1ppd cigarette smoker -Patches for NRT -Cessation counseling offered Continue with current psychiatric treatment Bloodwork for Wednesday the patient is an elderly female with a long history of bipolar disorder, highly functional at baseline, referred to this facility for exacerbation of PTSD symptoms and night terrors in the context of treatment for depression.? At this moment, the patient denies safety concerns but she reports that she is still very anxious, unable to function.? Plan 1.? Gather collateral information.? 2. Continue with Geodon and other mood stabilizers.? 3.? Continue medical workout I spent minutes with the patient and/or on the patient floor today, greater than?50% of which was spent counseling/coordinating care. Patient educated on: therapeutic strategies Reason for contiued inpatient stay Substantial Risk for: med/psych decompensation
[2022-07-19] MEDS: Levothyroxine Sodium 125 MCG TABLET PO (05:52)
[2022-07-19] MEDS: Methylphenidate HCl 5 MG TABLET PO ×2 (05:52→15:59)
[2022-07-19 07:45] VITALS: BP 171/77; PULSE 85; RESP 18; TEMP 36.1; O2SAT 93
[2022-07-19] MEDS: Gabapentin 300 MG CAPSULE PO ×3 (07:57→21:08)
[2022-07-19] MEDS: Venlafaxine HCl ER 150 MG CAP.ER.24H PO (07:58)
[2022-07-19] MEDS: Ziprasidone 80 MG CAPSULE PO ×2 (07:58→21:10)
[2022-07-19] MEDS: NIFEdipine ER 30 MG TAB.ER.24 PO ×2 (07:58→21:09)
[2022-07-19] MEDS: hydrOXYzine HCL 25 MG TABLET 50 MG PO ×3 (07:59→21:09)
[2022-07-19] MEDS: LORazepam 0.5 MG TABLET PO (08:17)
[2022-07-19] MEDS: Nicotine 21 MG PATCH.TD24 TRANSDERMA (08:18)
--- NOTE | 2022-07-19 08:38 | P.PNPSI_ITS ---
Subjective Subjective Date of Service: 07/18/22 Reason For Visit: Bipolar, anxiety Subjective Notes: Conditional Voluntary Interim History: Patient was seen and discussed in rounds today. Records and plans were reviewed. She has been stable and is doing well. She states that the gabapentin has been very helpful with her back pain and night terrors which is no longer happening. She is looking forward to being discharged this week back to the [facility]. Eating and sleeping well. No complaints or side effects Medication Compliance: Yes Side effects from medications: No Attending Groups: Yes Review of Systems Acute medical concerns: No Medical Review of Systems: unchanged Review of Systems Review of Systems Yes all other systems are reviewed and are negative Mental Status Exam Mental Status Exam Narrative: Patient Appearance: Well Grooomed Patient Orientation: X3 Level of Consciousness: Awake Patient Behavior: Cooperative Mood Description: Calm Affect Description: Constricted Patient Cognition Impaired: No Ability to Follow Directions: Good Speech Pattern: Clear Hallucinations: None Delusions: Not Present Thought Process: Goal Oriented and Linear Thought Content: positive for Circumstantial Judgement: Fair Diagnostics Vital Signs (24Hr): Vital Signs - 24 hr 07/18/22 09:25 07/18/22 18:00 Temperature 97.7 F 97.1 F Pulse Rate 79 82 Respiratory Rate 16 22 H Blood Pressure 135/60 164/78 H Pulse Oximetry 95 95 Oxygen Delivery Method Room Air Room Air BMI result Body Mass Index 42.3 Labs Results: 07/16/22 07:56 07/16/22 07:56 Medications Medications Current Medications Acetaminophen (Acetaminophen 325 Mg Tablet) 650 mg PO Q6H PRN PRN Reason: Headache/Pain Mild Scale (1-3) Al Hydroxide/Mg Hydroxide (Magnesium Hydrox/Alum Hydrox 30 Ml Oral.Susp) 30 ml PO Q6H PRN PRN Reason: Heartburn/Nausea Clonidine HCl (Clonidine Hcl 0.2 Mg Tablet) 0.2 mg PO BID PRN PRN Reason: Anxiety Diazepam (Diazepam 2 Mg Tablet) 2 mg PO BEDTIME [facility] Last Admin: 07/18/22 20:10 Dose: 2 mg Gabapentin (Gabapentin 300 Mg Capsule) 300 mg PO TID [facility] Last Admin: 07/19/22 07:57 Dose: 300 mg Hydroxyzine HCl (Hydroxyzine Hcl 25 Mg Tablet) 25 mg PO Q6H PRN PRN Reason: Anxiety Last Admin: 07/15/22 01:55 Dose: 25 mg Hydroxyzine HCl (Hydroxyzine Hcl 25 Mg Tablet) 50 mg PO TID [facility] Last Admin: 07/19/22 07:59 Dose: 50 mg Hydroxyzine HCl (Hydroxyzine Hcl 50 Mg Tablet) 100 mg PO BEDTIME [facility] Last Admin: 07/18/22 20:10 Dose: 100 mg Levothyroxine Sodium (Levothyroxine Sodium 125 Mcg Tablet) 125 mcg PO DAILY@0600 [facility] Last Admin: 07/19/22 05:52 Dose: 125 mcg Lorazepam (Lorazepam 0.5 Mg Tablet) 0.5 mg PO Q8H PRN PRN Reason: Anxiety Last Admin: 07/19/22 08:17 Dose: 0.5 mg Magnesium Hydroxide (Milk Of Magnesia 30 Ml Oral.Susp) 30 ml PO DAILY PRN PRN Reason: Constipation Methylphenidate HCl (Methylphenidate Hcl 5 Mg Tablet) 5 mg PO BID@0630,1630 [facility] Last Admin: 07/19/22 05:52 Dose: 5 mg Nicotine (Nicotine 21 Mg Patch.Td24) 21 mg TRANSDERMA DAILY [facility] Last Admin: 07/19/22 08:18 Dose: 21 mg Nicotine Polacrilex (Nicotine Polacrilex 2 Mg Gum) 2 mg BUCCAL Q2H PRN PRN Reason: Nicotine Cravings Last Admin: 07/15/22 17:19 Dose: 2 mg Nifedipine (Nifedipine Er 30 Mg Tab.Er.24) 30 mg PO BID [facility] Last Admin: 07/19/22 07:58 Dose: 30 mg Prazosin HCl (Prazosin Hcl 5 Mg Capsule) 10 mg PO BEDTIME [facility] Last Admin: 07/18/22 20:10 Dose: 10 mg Trazodone HCl (Trazodone Hcl 50 Mg Tablet) 50 mg PO BEDTIME PRN PRN Reason: Insomnia Venlafaxine HCl (Venlafaxine Hcl Er 150 Mg Cap.Er.24h) 150 mg PO DAILY [facility] Last Admin: 07/19/22 07:58 Dose: 150 mg Ziprasidone (Ziprasidone 80 Mg Capsule) 80 mg PO BID [facility] Last Admin: 07/19/22 07:58 Dose: 80 mg Allergies Allergies Allergy/AdvReac Type Severity Reaction Status Date / Time No Known Allergies Allergy Verified 07/15/22 01:18 Assessment & Plan Assessment & Plan (1) Sleep disorder: Status: Acute Code(s): G47.9 - Sleep disorder, unspecified (2) Bipolar disorder: Status: Acute Code(s): F31.9 - Bipolar disorder, unspecified Plan 67 year old female with history of hypertension, hypothyroidism, parotitis, ADHD, bipolar disorder admitted to geriatric psychiatry for hallucinations, SI, and night terrors with consult placed for medical H&P.Labs reviewed from [facility] and [facility] are unremarkable including CBC and BMP. EKG shows NSR without st/t wave abnormality. No prolonged qtc #Bipolar disorder/night terrors -Plan per psychiatry #HTN-controlled -not on meds -monitor bp -consider amlodipine 5mg if hypertensive #Hypothyroidism -TSH elevated. Recommend repeating TSH with free T4 in several days -Continue levothyroxine on empty stomach. No other meds or food for 1hr #HLD -continue statin #Parotitis appears to have resolved no parotid gland swelling or tenderness #Nicotine dependence -1ppd cigarette smoker -Patches for NRT -Cessation counseling offered Continue with current psychiatric treatment Bloodwork for Wednesday the patient is an elderly female with a long history of bipolar disorder, highly functional at baseline, referred to this facility for exacerbation of PTSD symptoms and night terrors in the context of treatment for depression.? At this moment, the patient denies safety concerns but she reports that she is still very anxious, unable to function.? Plan 1.? Gather collateral information.? 2. Continue with Geodon and other mood stabilizers.? 3.? Continue medical workout 07/19: Continue current regimen and plans. Possible discharge early this week I spent minutes with the patient and/or on the patient floor today, greater than?50% of which was spent counseling/coordinating care. Reason for contiued inpatient stay Substantial Risk for: med/psych decompensation
[2022-07-19] MEDS: Milk of Magnesia 30 ML ORAL.SUSP PO (10:54)
[2022-07-19 18:00] VITALS: BP 143/70; PULSE 80; RESP 16; TEMP 36.4; O2SAT 94
[2022-07-19] MEDS: hydrOXYzine HCL 50 MG TABLET 100 MG PO (21:08)
[2022-07-19] MEDS: diazePAM 2 MG TABLET PO (21:08)
[2022-07-19] MEDS: Prazosin HCL 5 MG CAPSULE 10 MG PO (21:09)
[2022-07-20] MEDS: Levothyroxine Sodium 125 MCG TABLET PO (05:57)
[2022-07-20] MEDS: Methylphenidate HCl 5 MG TABLET PO ×2 (05:57→16:38)
[2022-07-20 07:30] VITALS: BP 187/86; PULSE 83; RESP 16; TEMP 36.3; O2SAT 94
[2022-07-20] MEDS: Nicotine 21 MG PATCH.TD24 TRANSDERMA (09:34)
[2022-07-20] MEDS: Ziprasidone 80 MG CAPSULE PO ×2 (09:34→20:20)
[2022-07-20] MEDS: Gabapentin 300 MG CAPSULE PO ×3 (09:34→20:19)
[2022-07-20] MEDS: hydrOXYzine HCL 25 MG TABLET 50 MG PO ×3 (09:34→20:19)
[2022-07-20] MEDS: Venlafaxine HCl ER 150 MG CAP.ER.24H PO (09:34)
[2022-07-20] MEDS: NIFEdipine ER 30 MG TAB.ER.24 PO ×2 (09:34→20:19)
[2022-07-20] MEDS: LORazepam 0.5 MG TABLET PO ×2 (11:57→22:57)
--- NOTE | 2022-07-20 13:33 | HO.PSYCHPN ---
Subjective Subjective Date of Service: 07/20/22 Reason For Visit: Bipolar, anxiety Subjective Notes: Conditional Voluntary Interim History: The nursing staff reported the patient had been sleeping very well. She had been fully compliant with treatment and she has participated in groups. Occupational therapy reported that she is very active in the groups, she is future oriented. On interview, the patient denies new symptoms we will plan to discharge her tomorrow morning. No safety concerns at this moment. Mental Status Exam Mental Status Exam Patient Appearance: Well Grooomed Patient Orientation: Person and Situation Level of Consciousness: Awake Patient Behavior: Cooperative Mood Description: Withdrawn Affect Description: Labile Patient Cognition Impaired: Yes Ability to Follow Directions: Good Speech Pattern: Clear Hallucinations: None Delusions: Not Present Thought Process: Linear Thought Content: positive for Circumstantial Judgement: Fair Diagnostics Vital Signs (24Hr): Vital Signs - 24 hr 07/19/22 18:00 07/20/22 07:30 Temperature 97.5 F 97.4 F Pulse Rate 80 83 Respiratory Rate 16 16 Blood Pressure 143/70 H 187/86 H Pulse Oximetry 94 94 Oxygen Delivery Method Room Air Room Air BMI result Body Mass Index 42.3 Labs Results: 07/16/22 07:56 07/16/22 07:56 Medications Medications Current Medications Acetaminophen (Acetaminophen 325 Mg Tablet) 650 mg PO Q6H PRN PRN Reason: Headache/Pain Mild Scale (1-3) Al Hydroxide/Mg Hydroxide (Magnesium Hydrox/Alum Hydrox 30 Ml Oral.Susp) 30 ml PO Q6H PRN PRN Reason: Heartburn/Nausea Clonidine HCl (Clonidine Hcl 0.2 Mg Tablet) 0.2 mg PO BID PRN PRN Reason: Anxiety Diazepam (Diazepam 2 Mg Tablet) 2 mg PO BEDTIME PEDRO Last Admin: 07/19/22 21:08 Dose: 2 mg Gabapentin (Gabapentin 300 Mg Capsule) 300 mg PO TID PEDRO Last Admin: 07/20/22 09:34 Dose: 300 mg Hydroxyzine HCl (Hydroxyzine Hcl 25 Mg Tablet) 25 mg PO Q6H PRN PRN Reason: Anxiety Last Admin: 07/15/22 01:55 Dose: 25 mg Hydroxyzine HCl (Hydroxyzine Hcl 25 Mg Tablet) 50 mg PO TID PEDRO Last Admin: 07/20/22 09:34 Dose: 50 mg Hydroxyzine HCl (Hydroxyzine Hcl 50 Mg Tablet) 100 mg PO BEDTIME [facility] Last Admin: 07/19/22 21:08 Dose: 100 mg Levothyroxine Sodium (Levothyroxine Sodium 125 Mcg Tablet) 125 mcg PO DAILY@0600 [facility] Last Admin: 07/20/22 05:57 Dose: 125 mcg Lorazepam (Lorazepam 0.5 Mg Tablet) 0.5 mg PO BID PRN PRN Reason: Anxiety Last Admin: 07/20/22 11:57 Dose: 0.5 mg Magnesium Hydroxide (Milk Of Magnesia 30 Ml Oral.Susp) 30 ml PO DAILY PRN PRN Reason: Constipation Last Admin: 07/19/22 10:54 Dose: 30 ml Methylphenidate HCl (Methylphenidate Hcl 5 Mg Tablet) 5 mg PO BID@0630,1630 [facility] Last Admin: 07/20/22 05:57 Dose: 5 mg Nicotine (Nicotine 21 Mg Patch.Td24) 21 mg TRANSDERMA DAILY [facility] Last Admin: 07/20/22 09:34 Dose: 21 mg Nicotine Polacrilex (Nicotine Polacrilex 2 Mg Gum) 2 mg BUCCAL Q2H PRN PRN Reason: Nicotine Cravings Last Admin: 07/15/22 17:19 Dose: 2 mg Nifedipine (Nifedipine Er 30 Mg Tab.Er.24) 30 mg PO BID [facility] Last Admin: 07/20/22 09:34 Dose: 30 mg Prazosin HCl (Prazosin Hcl 5 Mg Capsule) 10 mg PO BEDTIME [facility] Last Admin: 07/19/22 21:09 Dose: 10 mg Trazodone HCl (Trazodone Hcl 50 Mg Tablet) 50 mg PO BEDTIME PRN PRN Reason: Insomnia Venlafaxine HCl (Venlafaxine Hcl Er 150 Mg Cap.Er.24h) 150 mg PO DAILY [facility] Last Admin: 07/20/22 09:34 Dose: 150 mg Ziprasidone (Ziprasidone 80 Mg Capsule) 80 mg PO BID [facility] Last Admin: 07/20/22 09:34 Dose: 80 mg Allergies Allergies Allergy/AdvReac Type Severity Reaction Status Date / Time No Known Allergies Allergy Verified 07/15/22 01:18 Assessment & Plan Assessment & Plan (1) Sleep disorder: Status: Acute Code(s): G47.9 - Sleep disorder, unspecified (2) Bipolar disorder: Status: Acute Code(s): F31.9 - Bipolar disorder, unspecified Plan 67 year old female with history of hypertension, hypothyroidism, parotitis, ADHD, bipolar disorder admitted to geriatric psychiatry for hallucinations, SI, and night terrors with consult placed for medical H&P.Labs reviewed from [place] [facility] and [facility] are unremarkable including CBC and BMP. EKG shows NSR without st/t wave abnormality. No prolonged qtc #Bipolar disorder/night terrors -Plan per psychiatry #HTN-controlled -not on meds -monitor bp -consider amlodipine 5mg if hypertensive #Hypothyroidism -TSH elevated. Recommend repeating TSH with free T4 in several days -Continue levothyroxine on empty stomach. No other meds or food for 1hr #HLD -continue statin #Parotitis appears to have resolved no parotid gland swelling or tenderness #Nicotine dependence -1ppd cigarette smoker -Patches for NRT -Cessation counseling offered Continue with current psychiatric treatment Bloodwork for Wednesday the patient is an elderly female with a long history of bipolar disorder, highly functional at baseline, referred to this facility for exacerbation of PTSD symptoms and night terrors in the context of treatment for depression.? At this moment, the patient denies safety concerns but she reports that she is still very anxious, unable to function.? Plan 1.? Gather collateral information.? 2. Continue with Geodon and other mood stabilizers.? 3.? Continue medical workout 07/19: Continue current regimen and plans. Possible discharge early this week I spent minutes with the patient and/or on the patient floor today, greater than?50% of which was spent counseling/coordinating care. Reason for contiued inpatient stay Substantial Risk for: inability to function, rapid decompensation and med/psych decompensation
[2022-07-20] MEDS: Milk of Magnesia 30 ML ORAL.SUSP PO (17:59)
[2022-07-20 18:00] VITALS: BP 153/74; PULSE 88; RESP 17; TEMP 36.3; O2SAT 93
[2022-07-20] MEDS: hydrOXYzine HCL 50 MG TABLET 100 MG PO (20:19)
[2022-07-20] MEDS: Prazosin HCL 5 MG CAPSULE 10 MG PO (20:19)
[2022-07-20] MEDS: diazePAM 2 MG TABLET PO (20:19)
[2022-07-21 06:00] VITALS: BP 161/79; PULSE 82; RESP 17; TEMP 36.2; O2SAT 96
[2022-07-21] MEDS: Levothyroxine Sodium 125 MCG TABLET PO (06:09)
[2022-07-21] MEDS: Methylphenidate HCl 5 MG TABLET PO (06:09)
--- NOTE | 2022-07-21 08:27 | P.DS_ITS ---
DS: Providers Provider Date of Service: 07/21/22 Date of admission: 07/15/22 00:21 Date of discharge: 07/21/22 Primary care physician: Unknown Physician Consults: 07/15/22 02:38 Consult to Hospitalist Routine Consulting Provider: Hospitalist Reason For Exam: HOSPITAL TO HOSPITAL TRANSFER DS: Diagnosis Discharge Diagnosis (1) Sleep disorder: Status: Acute (2) Bipolar disorder: Status: Acute DS: Medications Discharge Medications Home Medications: Home Medications Medication Instructions Recorded Confirmed Geodon 80 mg PO BID 07/15/22 07/15/22 atomoxetine 18 mg PO DAILY 07/15/22 07/15/22 clonidine 0.2 mg PO BID PRN Anxiety 07/15/22 07/15/22 gabapentin 300 mg PO TID 07/15/22 07/15/22 hydroxyzine pamoate 100 mg PO BEDTIME 07/15/22 07/15/22 levothyroxine 125 mcg PO DAILY 07/15/22 07/15/22 nifedipine 30 mg PO BID 07/15/22 07/15/22 prazosin 10 mg PO BEDTIME 07/15/22 07/15/22 venlafaxine 150 mg PO DAILY 07/15/22 07/15/22 methylphenidate HCl 18 mg 18 mg PO DAILY 07/16/22 07/16/22 tablet,extended release 24 hr (Concerta) Mental Status Exam Mental Status Exam Patient Appearance: Well Grooomed Patient Orientation: Person, Place, Time and Situation Level of Consciousness: Awake and Appropriate Patient Behavior: Cooperative Mood Description: Calm Affect Description: Depressed Patient Cognition Impaired: No Ability to Follow Directions: Good Speech Pattern: Clear and Appropriate Memory Description: Intact Hallucinations: None Delusions: Not Present Thought Process: Linear Thought Content: positive for Intact Judgement: Fair Data Data Completed and Pending Completed studies during hospitalization [Text1]: 07/16/22 07/16/22 07/16/22 07:56 07:56 07:56 WBC 6.4 RBC 5.32 Hgb 16.3 H Hct 47.8 H MCV 89.8 MCH 30.6 MCHC 34.1 RDW 12.9 Plt Count 242 MPV 9.8 Immature Gran % (Auto) 0.3 Neut % (Auto) 54.7 Lymph % (Auto) 35.2 [place] % (Auto) 6.2 Eos % (Auto) 3.1 Baso % (Auto) 0.5 Lymph # (Auto) 2.3 [place] # (Auto) 0.4 Eos # (Auto) 0.2 Baso # (Auto) 0.0 Abs Immat Gran (auto) 0.02 Absolute Neuts (auto) 3.5 Absolute Nucleated RBC 0.000 Nucleated RBC % (auto) 0.0 Sodium 140 Potassium 4.3 Chloride 105 Carbon Dioxide 22 Anion Gap 17 BUN 11 Creatinine 0.92 Estim Creat Clear Calc 59.0 Estimated GFR > 60 Fasting Glucose 128 H Estimat Average Glucose 111 Hemoglobin A1c % 5.5 Calcium 9.9 Total Bilirubin 0.5 Direct Bilirubin 0.2 AST 23 ALT 32 H Alkaline Phosphatase 80 Total Protein 7.2 Albumin 4.5 Triglycerides 117 Cholesterol 223 LDL Cholesterol, Calc 141 HDL Cholesterol 59 Vitamin B12 Folate TSH 7.38 H 07/16/22 07:56 WBC RBC Hgb Hct MCV MCH MCHC RDW Plt Count MPV Immature Gran % (Auto) Neut % (Auto) Lymph % (Auto) [place] % (Auto) Eos % (Auto) Baso % (Auto) Lymph # (Auto) [place] # (Auto) Eos # (Auto) Baso # (Auto) Abs Immat Gran (auto) Absolute Neuts (auto) Absolute Nucleated RBC Nucleated RBC % (auto) Sodium Potassium Chloride Carbon Dioxide Anion Gap BUN Creatinine Estim Creat Clear Calc Estimated GFR Fasting Glucose Estimat Average Glucose Hemoglobin A1c % Calcium Total Bilirubin Direct Bilirubin AST ALT Alkaline Phosphatase Total Protein Albumin Triglycerides Cholesterol LDL Cholesterol, Calc HDL Cholesterol Vitamin B12 536 Folate 13.0 TSH DS: Summary Hospital Course Hospital Course: The patient was brought from out of our catchment area since she walked in to the emergency room complaining of night terrors. The patient carries a diagnosis of bipolar disorder and she recently was treated with TMS and apparently the triggered her PTSD and night terrors. Please see the HPI on the admission note for further details. On interview, on admission, the patient was pleasant and cooperative she repo rted that she had problems sleeping and she had been having night terrors. Also she complained of exacerbation of her depressive symptoms. We discussed risks, benefits, side-effects and alternatives and she agreed to add a low dose of Valium at night and increase the prazosin up to 10 mg p.o. q.h.s.. The patient reported that her night terrors improved, she was able to participate in all the therapeutic activities in the unit and she was future oriented. the staff also noticed that the patient have some cluster B personality traits. Since there were no safety concerns discharge planning was discussed. The social media content specialist contacted collateral information apparently she had a past history of abuse of benzodiazepines and her outpatient providers will not refill more benzos. She will be dischargd with services and she is referred to [facility] as a transition. Time spent discussing smoking cessation with patient: 3 to 10 minutes Status at Discharge Cognitive/behavioral status at discharge: At baseline Functional status at discharge: independent ambulation Overall status at discharge: patient is back to baseline Time Spent with Patient Time attestation: Total time spent providing and/or coordinating discharge services: Time spent: Less than 30 minutes Discharge Plan Discharge Anticipated Discharge Date/Time: 07/21/22 08:31 Patient Disposition: Home Health Service Discharge Diagnosis: Bipolar disorder type 2. PTSD. Cluster B personality traits Referrals: Holly Deleon, PhD [employer] [Other] - 07/23/22 11:00 am [facility] therapy [Other] - 1 Week (Your psychiatry Dr Holly Deleon Nurse Practitioner has put in an expedited request for a therapist at [facility]. She will follow up with an appointment. ) Dr Ga Lyles [Other] - 07/22/22 12:10 pm (Call placed to office for request for follow up appointment with PCP. ) [facility] [Other] - 1 Week (Referral was placed for [facility] program. Team to review and contact you with start date for intake. ) Discharge Medications: New venlafaxine 150 mg Capsule,Extended Release 24hr 150 mg PO DAILY 30 Days Qty: 30 0RF prazosin 5 mg Capsule 10 mg PO BEDTIME 30 Days Qty: 60 0RF lorazepam 0.5 mg Tablet 0.5 mg PO BID PRN (Reason: Anxiety) 30 Days Qty: 60 0RF levothyroxine 125 mcg Tablet 125 mcg PO DAILY@0600 30 Days Qty: 30 0RF hydroxyzine HCl 25 mg Tablet 50 mg PO TID 30 Days Qty: 180 0RF diazepam [Valium] 2 mg tablet 2 mg PO BEDTIME Qty: 30 0RF Continued methylphenidate HCl [Concerta] 18 mg Tablet Extended Release 24hr 18 mg PO DAILY 15 Days Qty: 15 0RF Geodon capsule 80 mg PO BID 30 Days Qty: 60 0RF clonidine tablet 0.2 mg PO BID PRN (Reason: Anxiety) 30 Days Qty: 60 0RF gabapentin tablet 300 mg PO TID 30 Days Qty: 90 0RF hydroxyzine pamoate 100 mg PO BEDTIME 30 Days Qty: 30 0RF nifedipine 30 mg PO BID 30 Days Qty: 60 0RF Discontinued atomoxetine tablet 18 mg PO DAILY levothyroxine tablet 125 mcg PO DAILY prazosin 10 mg PO BEDTIME venlafaxine 150 mg PO DAILY Discharge Orders: Discharge Order (Routine); Ordered 07/21/22 Ordered By: Yaw Talbot Diet: Advance to usual diet Activity on Discharge: As tolerated Stand Alone Forms: Patient Portal Discharge page Care Plan Goals: Care plan goals achieved Health Concerns: Continue outpatient services. Plan of Treatment: [facility] Assessment: Adult female, highly functional with bipolar disorder, PTSD and cluster B traits admitted for night terrors, now stable and safe
[2022-07-21] MEDS: hydrOXYzine HCL 25 MG TABLET 50 MG PO (10:41)
[2022-07-21] MEDS: NIFEdipine ER 30 MG TAB.ER.24 PO (10:41)
[2022-07-21] MEDS: Gabapentin 300 MG CAPSULE PO (10:41)
[2022-07-21] MEDS: Ziprasidone 80 MG CAPSULE PO (10:41)
[2022-07-21] MEDS: Venlafaxine HCl ER 150 MG CAP.ER.24H PO (10:42)
[2022-07-21] MEDS: Nicotine 21 MG PATCH.TD24 TRANSDERMA (10:44)
[2022-07-21] MEDS: LORazepam 0.5 MG TABLET PO (11:06)
== END 2022-07-21 13:00 | disposition home health service (06) | DRG 885 ==
PROVIDERS: Psychiatry & Neurology Psychiatry; Admitting Provider Psychiatry & Neurology Psychiatry; Visit Provider Psychiatry & Neurology Psychiatry
DX: F31.81 Bipolar II disorder (principal); R45.851 Suicidal ideations; F90.9 Attention-deficit hyperactivity disorder, unspecified type; F51.4 Sleep terrors [night terrors]; F43.10 Post-traumatic stress disorder, unspecified; E03.9 Hypothyroidism, unspecified; E78.5 Hyperlipidemia, unspecified; I10 Essential (primary) hypertension; F17.210 Nicotine dependence, cigarettes, uncomplicated; Z71.6 Tobacco abuse counseling; Z79.890 Hormone replacement therapy; Z79.899 Other long term (current) drug therapy
CPT/HCPCS: 36415; 80053; 80061; 80076; 82607; 82746; 83036; 84443; 85025